=== PATIENT | female | born 1980 | race Caucasian/White ===

== ENCOUNTER 2024-09-30 17:25 | Emergency (ER) | payer OTHER ==
[~2024-09-30] VITALS: Ht 154.9 cm; Wt 97.7 kg
[~2024-09-30 17:25] MED LIST: CLIN-214 PO; NO HOME MEDS
[2024-09-30 17:31] VITALS: BP 128/82; PULSE 97; RESP 18; TEMP 99.1; O2SAT 98
--- NOTE | 2024-09-30 17:58 | RADIOLOGY REPORT ---
CLINICAL INDICATION: ANKLE PAIN TECHNIQUE: 3 left ankle DI ANKLE, COMPLETE(3VW MIN) Comparison: None FINDINGS/IMPRESSION: : There is no evidence of acute fracture or dislocation. 1 cm plantar calcaneal spur
--- NOTE | 2024-09-30 18:16 | Physician Documentation ---
History of Present Illness General Chief Complaint: Ankle pain Stated Complaint: LEFT FOOT PAIN Time Seen by MD: 17:39 Primary Medical Doctor: NONE History of Present Illness Initial Comments 44-year-old female was doing yd work when she stepped in a hole and rolled her left ankle. It was eversion type injury with [id number] swelling to the lateral malleolus. She was able to ambulate on it throughout the day he had however has had increased pain. No prior ankle injuries. She does have mild antalgic gait. She is grossly neurologically intact, dorsiflexion and plantar flexion intact. Medication Reconciliation Allergies: Coded Allergies: No Known Allergies (Unverified , 02/25/13) Scheduled Clindamycin HCl (Clindamycin HCl CAPSULE), 3 CAP PO TID Miscellaneous Medications Home Med List (No Home Medications), (Reported) Past Medical History Past Medical History: Thyroid (unspecified) Past Surgical History: no surgical history Other Past Family History: Hypertension Smoking: Cigarettes Drug Use: none Lives with: Family Lives In: Home Review of Systems All Other Systems at this time: Reviewed and Negative Constitutional: Denies: fever Musc: Reports: joint pain, joint swelling Physical Exam Physical Exam Vital Signs: RN Vital Signs have been reviewed: Yes, Temperature: 99.1, Heart Rate: 97, Respiratory Rate: 18, BP: 128/82, Pulse Oximetry: 98, Weight: 97.730 Oxygen Flow Rate: 0 General Appearance: alert, WD/WN, mild distress Head: normal inspection Face: normal inspection Pupils/EOM/Fundus: PERRLA Respiratory: no respiratory distress Chest: accessory muscle use Cardiovascular: regular rate, rhythm Extremities: swelling (Left lateral malleolus swelling. No subtalar motion. No pain over the base of the 5th metatarsal.) Neurologic: oriented x4 Psychiatric: normal mood/affect Skin: normal color, warm/dry Progress Results/Orders Results/Orders Orders - AIXA HECTOR PAC Ortho Orders (09/30/24 ) Vital Signs 09/30/24 17:31 Temp 99.1 Pulse 97 Resp 18 B/P (MAP) 128/82 Pulse Ox 98 O2 Flow Rate 0 Medical Decision Making Differential Diagnosis Examination history consistent with mild to moderate left ankle sprain with reassuring x-rays for no fracture or dislocation. Patient was placed in [facility] [employer] boot and she will transition out of the boot advance her activity as tolerated. Departure Disposition: HOME / SELF CARE / HOMELESS Impression: Primary Impression: Sprain of ankle Qualified Codes: S93.402A - Sprain of unspecified ligament of left ankle, initial encounter Condition: Improved Discharge Instructions: Ankle Sprain Additional Instructions: Tonight in the emergency department you had x-rays obtained which are reassuring for no fracture. You have been placed in a cam walker boot. Please events your activity as tolerated and transition out of the boot. Follow up with your primary care physician for re-evaluation if still having pain and discomfort in 10 days to two weeks. Thank you for visiting emergency department [facility]. Referrals: NO PRIMARY CARE PROVIDER (PCP) Education Educated: Patient Educated regarding: diagnosis, treatment, prognosis Signature Scribe Signature: . Attestation: . AIXA HECTOR PAC September 30, 2024 18:16
== END 2024-09-30 18:48 | disposition home or self-care (01) ==
LOC: ER 17:26
DX: S93.402A Sprain of unspecified ligament of left ankle, initial encounter (principal); I10 Essential (primary) hypertension; X58.XXXA Exposure to other specified factors, initial encounter; Y93.89 Activity, other specified; Y92.89 Other specified places as the place of occurrence of the external cause; Y99.8 Other external cause status
CPT/HCPCS: 73610; 99283; L4360